=== PATIENT | male | born 1995 | race African-American/Black ===

== ENCOUNTER 2024-04-13 10:44 | Emergency (ER) | payer MEDICAID ==
[~2024-04-13] VITALS: Ht 182.9 cm; Wt 61.0 kg
[2024-04-13 10:50] VITALS: O2SAT 100
[2024-04-13] MEDS: KETOROLAC 30MG/ML VIAL IM ONE (11:52)
[2024-04-13] MEDS ORDERED: IBUP-2029 MT (12:57)
[2024-04-13] MEDS ORDERED: AMOX-494 MT (12:57)
[2024-04-13] MEDS ORDERED: CHLO473M2 MT (12:57)
[2024-04-13 13:10] VITALS: BP 120/68; PULSE 74; RESP 13; TEMP 37.00296; O2SAT 100
== END 2024-04-13 13:15 | disposition home or self-care (01) ==
LOC: ER 10:44
DX: K03.7 Posteruptive color changes of dental hard tissues (principal); G89.29 Other chronic pain
CPT/HCPCS: 96372; 99283; J1885; Z7610

== ENCOUNTER 2024-04-16 18:48 | Emergency (ER) | payer MEDICAID ==
[~2024-04-16] VITALS: Ht 182.9 cm; Wt 66.0 kg
[~2024-04-16 18:48] MED LIST: AMOX-494 MT; CHLO473M2 MT; IBUP-2029 MT
[2024-04-16 18:59] VITALS: O2SAT 98
[2024-04-16 19:20] VITALS: BP 143/58; PULSE 92; RESP 18; TEMP 98.4; O2SAT 97
[2024-04-16] MEDS ORDERED: KETOROLAC 15MG/ML VIAL IM ONE (20:30)
[2024-04-16] MEDS ORDERED: KETOROLAC 15MG/ML VIAL IM NR (23:45)
== END 2024-04-16 23:47 | disposition home or self-care (01) ==
LOC: ER 18:48
DX: R07.89 Other chest pain (principal); F17.290 Nicotine dependence, other tobacco product, uncomplicated
CPT/HCPCS: 71045; 93005; 99283; J1885